=== PATIENT | female | born 1995 | race Caucasian/White ===

== ENCOUNTER 2018-12-15 09:58 | Emergency (ER) | payer SELFPAY ==
[~2018-12-15] VITALS: Ht 160 cm; Wt 85.9 kg
[~2018-12-15 09:58] MED LIST: HYDR-4353 PO; NO HOME MEDS
[2018-12-15 11:57] VITALS: BP 121/70
== END 2018-12-15 11:58 | disposition home or self-care (01) ==
LOC: ER 09:59
DX: R10.32 Left lower quadrant pain (principal); R10.31 Right lower quadrant pain
CPT/HCPCS: 99283

== ENCOUNTER 2019-04-02 05:19 | Day surgery (SDC) | payer OTHER ==
[2019-03-31 10:57] LABS: BASOPHILS # (AUTO) 0.1 X10'3 (0-0.2); BASOPHILS % (AUTO) 0.6 % (0-1); EOSINOPHILS # (AUTO) 0.1 X10'3 (0-0.9); EOSINOPHILS % (AUTO) 1.1 % (0-6); LYMPHOCYTES # (AUTO) 3.1 X10'3 (1.1-4.8); LYMPHOCYTES % (AUTO) 38.4 % (21-51); MEAN CORPUSCULAR HEMOGLOBIN 24.5 PG (27.0-31.0); MEAN CORPUSCULAR HGB CONC 32.7 g/dL (33.0-36.5); MEAN PLATELET VOLUME 7.1 FL (7.4-10.4); MONOCYTES # (AUTO) 0.4 X10'3 (0-0.9); MONOCYTES % (AUTO) 5.4 % (2-12); NEUTROPHILS # (AUTO) 4.3 X10'3 (1.8-7.7); NEUTROPHILS % (AUTO) 54.5 % (42-75); PRE OP HEMATOCRIT 37.8 % (35.0-45.0); PRE OP HEMOGLOBIN 12.4 g/dL (12.0-16.0); PRE OP PLATELET COUNT 214 X10'3 (140-440); RED BLOOD COUNT 5.05 X10'6 (4.20-5.60); RED CELL DISTRIBUTION WIDTH 14.4 % (11.5-14.5)
[2019-03-31 11:04] LABS: ALBUMIN 3.9 G/DL (3.4-5.0); ALKALINE PHOSPHATASE 47 IU/L (46-116); BLOOD UREA NITROGEN 11 MG/DL (7-18); BUN/CREATININE RATIO 13.8 (6.6-38.0); CALCIUM 8.4 MG/DL (8.5-10.1); CHLORIDE 106 MMOL/L (99-107); PRE OP ALT 24 U/L (30-65); PRE OP ANION GAP 10 (8-16); PRE OP AST 16 U/L (10-37); PRE OP BILIRUB, TOTAL 0.4 MG/DL (0.0-1.0); PRE OP GLUCOSE 103 MG/DL (70-104); PRE OP POTASSIUM 3.6 MMOL/L (3.4-5.1); PRE OP SODIUM 142 MMOL/L (135-145); TOTAL CARBON DIOXIDE 25.8 MMOL/L (24-32); TOTAL PROTEIN 7.9 G/DL (6.4-8.2); eGFR 88 ML/MIN
[2019-03-31 11:11] LABS: HCG SERUM QL NEGATIVE
[2019-04-02] VITALS (9 sets, daily range): BP systolic 112–134; BP diastolic 62–84
[~2019-04-02] VITALS: Ht 157.5 cm; Wt 81.2 kg
[~2019-04-02 05:19] MED LIST changes: -HYDR-4353 PO; +ringers solution, lacted 1,000 ML IV SCH
[2019-04-02] MEDS ORDERED: famotidine 20mg tablet PO ONE (05:30)
[2019-04-02] MEDS ORDERED: LIDOcaine 1% (10mg/ml) 2ml vial ONE (06:16)
[2019-04-02] MEDS ORDERED: ROPIVAcaine 0.5% (5mg/ml) 30ml vial ONE ×2 (06:45→08:40)
[2019-04-02] MEDS ORDERED: midazolam 2 mg/2 ml injection ONE (07:17)
[2019-04-02] MEDS ORDERED: fentaNYL /PF 50mcg/ml 5ml ampule ONE (07:18)
[2019-04-02] MEDS ORDERED: sevoflurane 250ml liquid IH ONE (07:35)
[2019-04-02] MEDS ORDERED: rocuronium 10mg/ml inj IV ONE (07:42)
[2019-04-02] MEDS ORDERED: ondansetron/PF 4mg/2ml inj ONE (07:42)
[2019-04-02] MEDS ORDERED: propofol inj 20 ML IV ONE (07:42)
[2019-04-02] MEDS ORDERED: glycopyrrolate 0.2mg/ml inj ONE (07:42)
[2019-04-02] MEDS ORDERED: dexamethasone sod phosphate 4mg/ml inj. ONE (07:42)
[2019-04-02] MEDS ORDERED: neostigmine methylsulfate 1 MG/ML 10ml vial ONE (07:42)
[2019-04-02] MEDS ORDERED: LIDOcaine 2% (20mg/ml) 5ml vial ONE (07:42)
[2019-04-02] MEDS ORDERED: ondansetron/PF 4mg/2ml inj IV PRN (08:30)
[2019-04-02] MEDS ORDERED: meperidine/PF 25mg/ml syringe IV PRN ×3 (08:30)
[2019-04-02] MEDS ORDERED: ringers solution, lacted 1,000 ML IV SCH (08:30)
[2019-04-02] MEDS ORDERED: proCHLORperazine 10 MG/2 ml inj IV PRN (08:30)
[2019-04-02] MEDS ORDERED: morphine 4 MG/ML inj SYRINge IV PRN ×2 (08:30)
[2019-04-02] MEDS ORDERED: sodium bicarbonate (8.4%) inj. 1 MEQ/ML ML ONE (08:40)
--- NOTE | 2019-04-02 08:58 | NUR ---
Received from OR via [facility] , accompanied by Anesthesiologist CAMDEN and report given by Anesthesiolgist. PATIENT WITH 20G PIV IN LEFT UE RUNNING LR AT 100. 3 ABDOMINAL BANDAIDS PRESENT AND ARE CDI. VSS. JIMMY PAD IN PLACE AND IS CDI. LMA PRESENT AND WILL BE REMOVED ONCE ABLE TO PROTECT OWN AIRWAY. Addendum: 04/02/19 at 0912 by Gunner Pierre RN, RN Amended: Links added.
[2019-04-02] MEDS ORDERED: oxyCODONE/APAP 5-325mg tablet PO ONE (09:10)
--- NOTE | 2019-04-02 10:08 | NUR ---
ALL DC CRITERIA HAS BEEN MET. IV TAKEN OUT WITHOUT COMPLICATIONS. ALL INSTRUCTIONS COVERED AND ALL QUESTIONS ANSWERED. DRESSINGS CDI. OUT VIA WHEELCHAIR TO PERSONAL VEHICLE WHERE PATIENT WAS SECURED IN AND DRIVEN HOME BY FAMILY. PATIENT VOIDED, ATE, DRANK AND WAS DRIVEN HOME BY SPOUSE. DENIES PAIN . PAD IN PLACE. AMBULATED TO VEHICLE. Addendum: 04/02/19 at 1028 by Gunner Pierre RN, RN Amended: Links added.
== END 2019-04-02 10:08 | disposition home or self-care (01) ==
LOC: PAS 05:19
PROVIDERS: ATTEND Obstetrics & Gynecology
DX: Z30.2 Encounter for sterilization (principal); N92.0 Excessive and frequent menstruation with regular cycle; R10.2 Pelvic and perineal pain; E66.9 Obesity, unspecified; Z68.32 Body mass index [BMI] 32.0-32.9, adult; F41.9 Anxiety disorder, unspecified; F32.9 Major depressive disorder, single episode, unspecified; Z72.89 Other problems related to lifestyle; Z87.891 Personal history of nicotine dependence; Z98.890 Other specified postprocedural states; Z79.899 Other long term (current) drug therapy
CPT/HCPCS: 36415; 49321; 51700; 58563; 58661; 80053; 82948; 84703; 85025; A4264; J1100; J2001; J2250; J2405; J2704; J2710; J3010; J7030; J7120; A4355; A4618; A6250; A6258; A7000; J2795; J3490

== ENCOUNTER 2021-03-01 04:35 | Emergency (ER) | payer MEDICAID, OTHER ==
[~2021-03-01] VITALS: Ht 160 cm; Wt 85.0 kg
[~2021-03-01 04:35] MED LIST changes: -ringers solution, lacted 1,000 ML IV SCH
[2021-03-01] MEDS ORDERED: PRED20TA PO (04:44)
[2021-03-01] MEDS ORDERED: ALBU18HF2 INH (04:44)
[2021-03-01] MEDS ORDERED: ipratropium/albuterol 3ml nebule NEB ONE (04:45)
[2021-03-01] MEDS ORDERED: dexamethasone 4mg tablet PO ONE (04:45)
[2021-03-01 05:02] VITALS: BP 127/93
== END 2021-03-01 05:04 | disposition home or self-care (01) ==
LOC: ER 04:37
DX: J20.9 Acute bronchitis, unspecified (principal); Z79.899 Other long term (current) drug therapy
CPT/HCPCS: 94640; 94760; 99283